=== PATIENT | male | born 1955 | race African-American/Black ===

== ENCOUNTER 2016-10-08 20:33 | Emergency (ER) | payer OTHER ==
[~2016-10-08] VITALS: Ht 177.8 cm; Wt 97.5 kg
[~2016-10-08 20:33] MED LIST: ACTOS45 MG ORAL; ALBUTEROL SULF8.5 GM INH; AMARYL1 MG ORAL; AZITHROMYCIN250 MG ORAL; BENADRYL25 M3 PO; CAPOTEN12.5 MG ORAL; CLOPIDOGREL75 MG ORAL; COUMADIN5 MG ORAL; CYMBALTA60 MG ORAL; DIABETA5 MG ORAL; ECOTRIN81 MG ORAL; FOLIC ACID1 MG ORAL; GABAPENTIN300 MG ORAL; HYDROMORPHONE HC2 M1 PO; HYTRIN1 MG PO; IBUPROFEN200 MG ORAL; KLOR-CON 88 MEQ ORAL; LANOXIN250 MCG ORAL; LASIX40 MG ORAL; LEVAQUIN750 MG ORAL; LOPRESSOR25 M1 ORAL; LORAZEPAM0.5 MG ORAL; METFORMIN HCL1000 M1 ORAL; NICODERM 21MG/241 EA TDERMAL; NITROSTAT0.4 M1 SL; NORCO 5-325 TA1 EAC1 ORAL; NORCO 5-325 TA1 EACH ORAL; NOVOLOG100 UNITS1 SUBQ; PREDNISONE20 MG ORAL; PREDNISONE50 MG ORAL; PRINIVIL20 MG ORAL; PROMETHAZI6.25 MG/1 ORAL; RISPERDAL0.25 MG ORAL; SOMA350 MG PO; TEMAZEPAM30 MG ORAL; TRAZODONE HCL150 MG ORAL; TYLENOL EXTRA500 MG ORAL; UNOBMED
[2016-10-08] MEDS ORDERED: Vancomycin 1 GM in NS 275 ML IV ONE (21:15)
[2016-10-08] MEDS ORDERED: NS 1000ml 2,900 ML IVLG ONE (21:15)
[2016-10-08] MEDS ORDERED: Vancomycin 1gm inj IVPB ONE (21:19)
--- NOTE | 2016-10-08 21:28 | Emergency Room Report ---
History of Present Illness General Chief Complaint: Skin Rash/Abscess Source: Patient (NALDO HEMPHILLAdriana [email or web address]) Present Illness HPI This patient complains of leg swelling and blisters that are becoming worse on his bilateral lower extremities. The patient states it started out with leg swelling and then he developed small blisters and now he is developed very large blisters on his bilateral lower extremities. He states that they're very painful. He has been applying topical ointment to attempt to relieve the pain. He has subjective fever and chills. He denies chest pain or shortness of breath. He denies cough or congestion. He has no other complaints. (JOBYNICOLE Villegas.Grecia) Allergies: Coded Allergies: No Known Allergies (Unverified , 06/29/15) Patient History Past Medical History: see triage record, DM, HTN, CAD, COPD, GERD Past Surgical History: pacemaker Social History: Denies: alcohol use, drug use, smoking Reviewed Nursing Documentation: PMH: Agreed, PSxH: Agreed (NICOLE [email or web address].Grecia ) Nursing Documentation-PMH Hx Cardiac Problems: Yes Hx Hypertension: Yes Hx Pacemaker: Yes Hx Asthma: No Hx COPD: Yes Hx Diabetes: Yes Hx Cancer: No Hx Gastrointestinal Problems: No Hx Neurological Problems: Yes - hx of chronic low back pain, wheelchair bound (NICOLE HEMPHILL.[place]) Review of Systems All Other Systems: negative except mentioned in HPI ([email or web address]) Physical Exam Vital Signs Date Time Temp Pulse Resp B/P Pulse Ox O2 Delivery O2 Flow Rate FiO2 10/08/16 20:34 98.2 76 18 118/69 95 Nasal Cannula 2.0 Sp02 EP Interpretation: reviewed, normal General Appearance: no apparent distress, alert, GCS 15, non-toxic Head: normocephalic, atraumatic Eyes: bilateral eye PERRL, bilateral eye normal inspection ENT: hearing grossly normal, normal pharynx, no angioedema, normal voice Neck: full range of motion, supple/symm/no masses Respiratory: chest non-tender, lungs clear, normal breath sounds, speaking full sentences Cardiovascular #1: regular rate, rhythm, no edema Gastrointestinal: normal bowel sounds, non tender, soft, non-distended, no guarding, no rebound Rectal: deferred Musculoskeletal: back normal, normal range of motion, swelling - +swelling w/ large bulla and vesicles on BLE (shins, calves) Neurologic: alert, oriented x3, responsive, motor strength/tone normal, sensory intact, speech normal Psychiatric: judgement/insight normal, memory normal, mood/affect normal, no suicidal/homicidal ideation Skin: other - See MSK exam (NICOLE HEMPHILL D.O.) Procedures Critical Care Time Critical Care Time 30 minutes Glucose critically low On insulin, long-acting sulfonylurea, metformin Amp glucose given here Started on d10 drip in ED Endorsed this info to Dr Aguirre (JANNIE ABDUL M.D.) Medical Decision Making Diagnostic Impression: Primary Impression: Cellulitis Qualified Codes: L03.90 - Cellulitis, unspecified Additional Impressions: Lymphedema of both lower extremities Hypoglycemia Hypoxia CHF (congestive heart failure) Qualified Codes: I50.9 - Heart failure, unspecified COPD (chronic obstructive pulmonary disease) Qualified Codes: J42 - Unspecified chronic bronchitis ER Course This patient has significant lymphedema of bilateral lower extremities. There is some erythema that is concerning for an overlying cellulitis. There is also associated Bulla. This patient could have underlying right heart failure. Other considerations are lymphedema. However this would be unusual acutely. Therefore, he'll this patient should be admitted for further cardiac evaluation , IV antibiotics and further evaluation and treatment as an inpatient. Labs Test 10/08/16 21:40 10/08/16 23:00 White Blood Count 9.8 K/UL (4.8-10.8) Red Blood Count 5.03 M/UL (4.70-6.10) Hemoglobin 13.4 G/DL (14.2-18.0) Hematocrit 41.5 % (42.0-52.0) Mean Corpuscular Volume 83 FL (80-99) Mean Corpuscular Hemoglobin 26.7 PG (27.0-31.0) Mean Corpuscular Hemoglobin Concent 32.4 G/DL (32.0-36.0) Red Cell Distribution Width 17.9 % (11.6-14.8) Platelet Count 279 K/UL (150-450) Mean Platelet Volume 7.5 FL (6.5-10.1) Neutrophils (%) (Auto) 53.7 % (45.0-75.0) Lymphocytes (%) (Auto) 34.4 % (20.0-45.0) Monocytes (%) (Auto) 5.2 % (1.0-10.0) Eosinophils (%) (Auto) 4.3 % (0.0-3.0) Basophils (%) (Auto) 2.4 % (0.0-2.0) Prothrombin Time 35.2 SEC (9.30-11.50) Prothromb Time International Ratio 3.3 (0.9-1.1) Activated Partial Thromboplast Time 42 SEC (23-33) Sodium Level 138 mEQ/L (135-145) Potassium Level 4.9 mEQ/L (3.4-4.9) Chloride Level 96 mEQ/L (98-107) Carbon Dioxide Level 31 mEQ/L (20-30) Anion Gap 11 (5-15) Blood Urea Nitrogen 15 mg/dL (7-23) Creatinine 0.8 mg/dL (0.7-1.2) Estimat Glomerular Filtration Rate > 60 mL/min (>60) Glucose Level 39 mg/dL (74-106) Lactic Acid Level 2.20 mmol/L (0.66-2.22) 2.10 mmol/L (0.66-2.22) Calcium Level 9.3 mg/dL (8.6-10.2) Total Bilirubin 0.3 mg/dL (0.0-1.2) Aspartate Amino Transf (AST/SGOT) 19 U/L (5-40) Alanine Aminotransferase (ALT/SGPT) 16 U/L (3-41) Alkaline Phosphatase 84 U/L (40-129) Total Creatine Kinase 257 U/L (38-174) Creatine Kinase MB 5.8 ng/mL (< 6.7) Creatine Kinase MB Relative Index 2.2 Troponin I < 0.30 ng/mL (<=0.30) Pro-B-Type Natriuretic Peptide 444 pg/mL (0-125) Total Protein 7.8 g/dL (6.6-8.7) Albumin 4.1 g/dL (3.5-5.2) Globulin 3.7 g/dL Albumin/Globulin Ratio 1.1 (1.0-2.7) Digoxin Level 1.1 ng/mL (0.5-2.0) (NICOLE HEMPHILL D.O.) ER Course Glucose critically low. Review of meds shows long-acting sulfonylurea, metformin, insulin Dextrose given in ED followed by D10 drip Glucose 88 on D10 drip as of 1240am Upgraded to ICU because of d10 drip Endorsed to Dr Aguirre for ICU Critical care team to transfer Patient with hypoxia to high 80s when sleeping Lungs bilateral rhoncherous History of COPD CXR had not been done by previous ER MD I did CXR which shows bilateral pulm congestion Patient given 1 neb and lasix 40mg IV Insurance requesting transfer of patient Endorsed to Dr Aguirre at 1050pm for transfer (JANNIE ABDUL M.D.) EKG Diagnostic Results Rate: normal Rhythm: NSR ST Segments: no acute changes (NICOLE HEMPHILL D.O.) Rhythm Strip Diag. Results EP Interpretation: yes Rate: 70's Rhythm: NSR, no PVC's, no ectopy (NICOLE HEMPHILL D.O.) EP Interpretation: yes Rate: 83 Rhythm: NSR, no PVC's, no ectopy (JANNIE ABDUL M.D.) Chest X-Ray Diagnostic Results Chest X-Ray Diagnostic Results : Chest X-Ray Ordered: Yes # of Views/Limited/Complete: 1 View Indication: Other - Lympadema EP Interpretation: Yes Interpretation: no pneumothorax, other - Cardiomegaly, bilateral congestion Interpreting ER Provider: Electronically signed by Dr Abdul (JANNIE ABDUL M.D.) Last Vital Signs Date Time Temp Pulse Resp B/P Pulse Ox O2 Delivery O2 Flow Rate FiO2 10/08/16 20:34 98.2 76 18 118/69 95 Nasal Cannula 2.0 (NICOLE HEMPHILL D.O.) Status: improved (JANNIE ABDUL M.D.) Disposition: ADMITTED INPATIENT Condition: Serious NICOLE HEMPHILL D.O. Oct 08, 2016 21:28 JANNIE ABDUL M.D. Oct 08, 2016 22:50
[2016-10-08] MEDS ORDERED: Ketorolac 30mg Inj IV ONE (21:30)
[2016-10-08 21:35] VITALS: BP 118/69
[2016-10-08] MEDS ORDERED: JANTOVEN3 MG ORAL (21:41)
[2016-10-08] MEDS ORDERED: TERAZOSIN HCL1 MG ORAL (21:41)
[2016-10-08] MEDS ORDERED: JANUVIA25 MG ORAL (21:41)
[2016-10-08] MEDS ORDERED: ZYPREXA7.5 MG ORAL (21:41)
[2016-10-08] MEDS ORDERED: ZESTRIL10 M1 ORAL (21:41)
[2016-10-08] MEDS ORDERED: ARTIFICIAL TEA1 EAC2 OP (21:41)
[2016-10-08] MEDS ORDERED: XANAX0.5 MG ORAL (21:41)
[2016-10-08] MEDS ORDERED: GLIMEPIRIDE4 MG ORAL (21:41)
[2016-10-08] MEDS ORDERED: ALPRAZolam 0.5mg tab ORAL PRN (22:00)
[2016-10-08] MEDS ORDERED: TraZODone 50mg tab ORAL SCH (22:00)
[2016-10-08 22:16] LABS: BASOPHILS % (AUTO) 2.4 % (0.0-2.0); EOSINOPHILS % (AUTO) 4.3 % (0.0-3.0); LYMPHOCYTES % (AUTO) 34.4 % (20.0-45.0); MEAN CORPUSCULAR HEMOGLOBIN 26.7 PG (27.0-31.0); MEAN CORPUSCULAR HGB CONC 32.4 G/DL (32.0-36.0); MEAN CORPUSCULAR VOLUME 83 FL (80-99); MEAN PLATELET VOLUME 7.5 FL (6.5-10.1); MONOCYTES % (AUTO) 5.2 % (1.0-10.0); NEUTROPHILS % (AUTO) 53.7 % (45.0-75.0); PLATELET COUNT 279 K/UL (150-450); RED BLOOD COUNT 5.03 M/UL (4.70-6.10); RED CELL DISTRIBUTION WIDTH 17.9 % (11.6-14.8); WHITE BLOOD COUNT 9.8 K/UL (4.8-10.8)
[2016-10-08 22:27] LABS: INR 3.3 (0.9-1.1); PROTHROMBIN TIME 35.2 SEC (9.30-11.50)
[2016-10-08 22:28] LABS: TROPONIN I < 0.30 ng/mL (<=0.30)
[2016-10-08 22:31] LABS: ALANINE AMINOTRANSFERASE 16 U/L (3-41); ALBUMIN/GLOBULIN RATIO 1.1 (1.0-2.7); ANION GAP 11 (5-15); ASPARTATE AMINO TRANSFERASE 19 U/L (5-40); CALCIUM 9.3 mg/dL (8.6-10.2); CARBON DIOXIDE 31 mEQ/L (20-30); CHLORIDE 96 mEQ/L (98-107); CREATININE 0.8 mg/dL (0.7-1.2); GLOMERULAR FILTRATION RATE > 60 mL/min (>60); HEMOLYSIS 1; POTASSIUM 4.9 mEQ/L (3.4-4.9); SODIUM 138 mEQ/L (135-145); TOTAL PROTEIN 7.8 g/dL (6.6-8.7)
[2016-10-08 22:34] LABS: REFLEX LACTIC ACID YES OR NO YES
[2016-10-08 22:42] LABS: CKMB 5.8 ng/mL (< 6.7)
[2016-10-08 23:00] VITALS: BP 143/62
[2016-10-08] MEDS ORDERED: Dextrose 10%/0.9% SOD CHL 1,000 ML IV SCH (23:00)
[2016-10-09] LABS: REFLEX LACTIC ACID YES OR NO YES
[2016-10-09] MEDS ORDERED: Albuterol ud Inhalation HHN ONE (00:45)
[2016-10-09 02:00] VITALS: BP 142/67
[2016-10-09 03:15] VITALS: BP 124/75
[2016-10-09 05:11] VITALS: BP 131/58
[2016-10-09 05:40] VITALS: BP 131/58
[2016-10-09] MEDS ORDERED: CAPTOPRIL ORAL SCH (08:30)
[2016-10-09] MEDS ORDERED: Aspirin EC 81mg tab ORAL SCH (09:00)
[2016-10-09] MEDS ORDERED: DULoxetine 30mg cap ORAL SCH (09:00)
[2016-10-09] MEDS ORDERED: Lisinopril 20mg tab ORAL SCH (09:00)
[2016-10-09] MEDS ORDERED: Terazosin 1mg cap ORAL SCH (09:00)
--- NOTE | 2016-10-09 10:02 | Diagnostic Imaging Report ---
Indication: SOB Technique: One view of the chest Comparison: 07/28/2016 Findings: The heart is borderline enlarged. There is bilateral interstitial edema and some airspace disease. Possible small left pleural effusion. Left chest pacemaker again noted. Impression: Borderline cardiomegaly Mild interstitial congestion Possible small left pleural effusion This agrees with the preliminary interpretation provided by the emergency room physician
[2016-10-09] MEDS ORDERED: Terazosin 2mg cap ORAL SCH (21:00)
--- NOTE | 2016-10-12 13:19 | Cardiology Report ---
APPROVED REPORT EKG Measurement Heart [id number] Normal sinus rhythm Septal infarct, age undetermined T wave abnormality, consider anterior ischemia Abnormal ECG
== END 2016-10-09 06:01 | disposition short-term general hospital (02) ==
LOC: EDUNIT# 20:33 → EDBD 20:33 → EMR 21:15 → EDBEDREQSVC 10-09 00:34 → EMR 10-09 06:01
DX: J42 Unspecified chronic bronchitis (principal); R09.02 Hypoxemia; I50.9 Heart failure, unspecified; L03.90 Cellulitis, unspecified; I89.0 Lymphedema, not elsewhere classified; E11.649 Type 2 diabetes mellitus with hypoglycemia without coma; I10 Essential (primary) hypertension; Z95.0 Presence of cardiac pacemaker; I25.10 Atherosclerotic heart disease of native coronary artery without angina pectoris; K21.9 Gastro-esophageal reflux disease without esophagitis; G89.29 Other chronic pain; Z99.3 Dependence on wheelchair
CPT/HCPCS: 36415; 71010; 80053; 80162; 82550; 82553; 82962; 83605; 83880; 84484; 85025; 85610; 85730; 87040; 93005; 94640; 94664; 99291; J1940; J3370; J7050